=== PATIENT | male | born 1980 ===

== ENCOUNTER 2018-02-12 17:48 | Emergency (ER) | payer OTHER ==
[2018-02-12 17:54] VITALS: BP 133/75; PULSE 75; RESP 16; TEMP 97.9; O2SAT 97
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
== END 2018-02-12 19:39 | disposition home or self-care (01) ==
LOC: H.ER 17:48
DX: S01.112A Laceration without foreign body of left eyelid and periocular area, initial encounter (principal); V19.9XXA Pedal cyclist (driver) (passenger) injured in unspecified traffic accident, initial encounter; Y93.55 Activity, bike riding